=== PATIENT | female | born 1990 ===

== ENCOUNTER 2016-12-06 16:30 | Inpatient (IN) | payer MEDICAID, OTHER ==
--- NOTE | 2016-12-06 18:42 | C.PDOC ---
History Of Present Illness 26 yr old female presents to the ER requesting detox from heroin and suboxone. Patient reports last use of suboxone was yesterday and heroin use 2 days ago. Patient denies fever, nausea, vomiting, abdominal pain, headache, weakness or numbness. Time Seen by Provider: 12/06/16 18:18 Chief Complaint (Nursing): Substance Abuse History Per: Patient History/Exam Limitations: no limitations Onset/Duration Of Symptoms: Persistent Current Symptoms Are (Timing): Still Present Past Medical History Reviewed: Historical Data, Nursing Documentation, Vital Signs Vital Signs: Last Vital Signs Temp 98.8 F 12/06/16 20:36 Pulse 82 12/06/16 20:36 Resp 18 12/06/16 20:36 BP 107/67 12/06/16 20:36 Pulse Ox 99 12/06/16 20:36 - Medical History PMH: Hypothyroidism Family History: States: No Known Family Hx - Social History Hx Alcohol Use: Yes Hx Substance Use: Yes (suboxene, heroin) Review Of Systems Except As Marked, All Systems Reviewed And Found Negative. Constitutional: Negative for: Fever Gastrointestinal: Negative for: Nausea, Vomiting, Abdominal Pain Neurological: Negative for: Weakness, Numbness, Headache Physical Exam - Physical Exam Appears: Non-toxic, No Acute Distress Skin: Warm, Dry, No Rash Head: Atraumatic, Normacephalic Eye(s): bilateral: Normal Inspection, PERRL, EOMI Oral Mucosa: Moist Neck: Normal, Normal ROM, Supple Chest: Symmetrical, No Tenderness Cardiovascular: Rhythm Regular, No Murmur Respiratory: Normal Breath Sounds, No Rales, No Rhonchi, No Stridor, No Wheezing Back: Normal Inspection, No CVA Tenderness Extremity: Normal ROM, No Swelling Neurological/Psych: Oriented x3, Normal Speech, Normal Motor Gait: Steady ED Course And Treatment - Laboratory Results Result Diagrams: 12/06/16 19:06 12/06/16 19:06 O2 Sat by Pulse Oximetry: 99 Medical Decision Making Medical Decision Making: PLAN: * Alcohol Serum * Drug Screen * CBC * HCG Urine * Urinalysis Patient was evaluated by crisis and case was discussed with psychiatrcristian murrell. Patient was medically cleared for psych/detox admission. Disposition - Disposition Disposition: HOSPITALIZED Disposition Time: 19:58 Condition: STABLE - POA Present On Arrival: None - Clinical Impression Clinical Impression: Opioid dependence - PA / TAXI [employer]IVER SUPERVISOR / Resident Statement MD/DO has reviewed & agrees with the documentation as recorded. - Scribe Statement The provider has reviewed the documentation as recorded by the Scribe Shauna Shook All medical record entries made by the Robertibnanette were at my direction and personally dictated by me. I have reviewed the chart and agree that the record accurately reflects my personal performance of the history, physical exam, medical decision making, and the department course for this patient. I have also personally directed, reviewed, and agree with the discharge instructions and disposition.
[2016-12-06 18:56] LABS: RBC URINE 1 /hpf (0-3); URINE BACTERIA RARE (<OCC); URINE BILIRUBIN NEGATIVE (NEGATIVE); URINE BLOOD NEGATIVE (NEGATIVE); URINE COLOR Yellow (YELLOW); URINE GLUCOSE (UA) NORMAL (Normal); URINE KETONE NEGATIVE (NEGATIVE); URINE LEUKOCYTE ESTERASE NEG Leu/uL (Negative); URINE PROTEIN 1+ mg/dL (NEGATIVE); URINE UROBILINOGEN NORMAL mg/dL (0.2-1.0); WBC URINE 2 /hpf (0-5)
[2016-12-06 19:09] LABS: BASO # 0.1 K/uL (0.0-0.2); BASO % 0.6 % (0.0-2.0); EOS # 0.1 K/uL (0.0-0.7); EOS % 1.3 % (0.0-4.0); HEMATOCRIT 40.7 % (34.0-47.0); LYMPH # 2.3 K/uL (1.0-4.3); LYMPH % 23.6 % (20.0-40.0); MEAN CELL VOLUME 90.5 fL (81.0-99.0); MEAN CORPUSCULAR HEMOGLOBIN 29.3 pg (27.0-31.0); MEAN CORPUSCULAR HGB CONC 32.4 g/dL (33.0-37.0); MEAN PLATELET VOLUME 10.7 fL (7.2-11.7); MONO # 0.6 K/uL (0.0-0.8); MONO % 6.4 % (0.0-10.0); NRBC % 0.1 % (0.0-2.0); RED CELL DISTRIBUTION WIDTH 13.4 % (11.5-14.5); WHITE BLOOD COUNT 9.7 K/uL (4.8-10.8)
[2016-12-06 19:15] LABS: CHLORIDE 98 mmol/L (98-107)
[2016-12-06 19:16] LABS: POTASSIUM 4.4 mmol/L (3.6-5.2); SODIUM 139 mmol/L (132-148)
[2016-12-06 19:18] LABS: GFR AFRICAN-AMERICAN > 60
[2016-12-06 19:19] LABS: ALB/GLOB RATIO 1.2 (1.0-2.1); ALCOHOL SERUM < 10 mg/dl (0-10); ALKALINE PHOSPHATASE 83 U/L (38-126); ALT/SGPT 16 U/L (9-52); AST/SGOT 18 U/L (14-36); BILIRUBIN,TOTAL 0.4 mg/dL (0.2-1.3); BLOOD UREA NITROGEN 9 mg/dL (7-17); CARBON DIOXIDE 24 mmol/L (22-30); GLUCOSE,RANDOM 98 mg/dL (65-105); TOTAL PROTEIN 7.9 g/dL (6.3-8.3)
[2016-12-06] MEDS ORDERED: Buprenorphine Hydrochloride 2 mg SL ONE ×2 (21:17→22:30)
[2016-12-07] MEDS: Levothyroxine 100 MCG TAB PO SCH (06:44)
[2016-12-07] MEDS: Buprenorphine Hydrochloride 2 mg SL SCH (09:29)
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
[2016-12-08] MEDS: Levothyroxine 100 MCG TAB PO SCH (06:46)
[2016-12-08] MEDS: Buprenorphine Hydrochloride 2 mg SL SCH (09:04)
[2016-12-08 13:22] VITALS: RESP 18
--- NOTE | 2016-12-08 13:22 | PCM.PYCHPN ---
Psychiatric Progress Note - Psychiatric Progress Note Patient seen today, length of contact: 16 minutes Patient Chief Complaint: "getting better but bad anxiety" Problems Identified/Issues Discussed: Pt seen, chart reviewed, and case discussed Pt states shes feeling better, however does complains of some anxiety, feeling upset and crying. Denies chills, diaphoresis, abdominal pain, nausea, vomiting, suicidal ideation, homicidal ideation and hallucinations. Following discharge, pt plans to attend short term inpatient rehab followed by IOP and return back to work. Psychoeducation and support provided. Medication Change: Yes (detox changes daily, add Gabapentin and Lexapro) Medical Record Reviewed: Yes Mental Status Examination - Cognitive Function Orientation: Person, Place, Situation, Time Memory: Intact Attention: Poor Concentration: WNL Association: WNL Fund of Knowledge: WNL - Mood Mood: Anxious - Affect Affect: Flat - Speech Speech: Appropriate - Formal Thought Process Formal Thought Process: No Impairment - Suicidal Ideation Suicidal Ideation: No - Homicidal Ideation Homicidal Ideation: No Goal/Treatment Plan - Goal/Treatment Plan Need for Continued Stay: Remain at risks for inpatient hospitalization Progress Toward Problem(s) and Goals/Treatment Plan: opioids: -continue Subutex detox -as needed meds -attend groups and activities -GA, CBT -Refer to inpatient rehab -consider MAT Cocaine; - gabapentin - Mi for abstinence Depression and anxiety: - CBT and supportive tx - Attend groups - Lexapro started
[2016-12-09] MEDS: Levothyroxine 100 MCG TAB PO SCH (06:40)
[2016-12-09] MEDS: Buprenorphine Hydrochloride 2 mg SL SCH (09:06)
--- NOTE | 2016-12-09 14:59 | PCM.PYCHPN ---
Psychiatric Progress Note - Psychiatric Progress Note Patient seen today, length of contact: 16 minutes Patient Chief Complaint: "I have crazy anxiety" Problems Identified/Issues Discussed: Pt seen, chart reviewed, and case discussed Pt complains of continued anxiety, restlessness, body aches, and vomiting x3 yesterday, however was able to sleep through the night. Pt does not have a definite plan following discharge. States she will be moving to [place] on 12/28 with her significant other, however does not know where she will be staying until then. Pt denies suicidal ideation, homicidal ideation, and hallucinations Psychoeducation and support provided. Medication Change: Yes (detox changes daily) Medical Record Reviewed: Yes Mental Status Examination - Cognitive Function Orientation: Person, Place, Situation, Time Memory: Intact Attention: Poor Concentration: Poor Association: WNL Fund of Knowledge: WNL - Mood Mood: Depressed - Affect Affect: Flat - Speech Additional comments: Speech is slowed. - Formal Thought Process Formal Thought Process: No Impairment - Suicidal Ideation Suicidal Ideation: No - Homicidal Ideation Homicidal Ideation: No Goal/Treatment Plan - Goal/Treatment Plan Need for Continued Stay: Remain at risks for inpatient hospitalization, Severe functional impairment Progress Toward Problem(s) and Goals/Treatment Plan: opioids: -continue Subutex detox -as needed meds -attend groups and activities -AL, CBT -Refer to aftercare -consider MAT Cocaine: - gabapentin - Mi for abstinence Depression and anxiety: - CBT and supportive tx - Attend groups - Lexapro started
[2016-12-09] MEDS ORDERED: Magnesium Hydroxide Susp 30 ml UD PO ONE (21:23)
[2016-12-10] MEDS: Levothyroxine 100 MCG TAB PO SCH (05:31)
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
[2016-12-10] MEDS: Buprenorphine Hydrochloride 2 mg SL SCH (09:18)
[2016-12-10 09:20] VITALS: BP 96/58; PULSE 75; TEMP 97.6; O2SAT 97
== END 2016-12-10 12:00 | disposition home or self-care (01) | DRG 745 ==
LOC: C.ER 16:30 → C.7D 19:59
PROVIDERS: ADMIT Psychiatry & Neurology Psychiatry; ATTEND Psychiatry & Neurology Psychiatry
PROC: HZ2ZZZZ Detoxification Services for Substance Abuse Treatment (ICD-10-PCS; principal; 2016-12-06)
PROC: HZ42ZZZ Group Counseling for Substance Abuse Treatment, Cognitive-Behavioral (ICD-10-PCS; 2016-12-06)
PROC: HZ32ZZZ Individual Counseling for Substance Abuse Treatment, Cognitive-Behavioral (ICD-10-PCS; 2016-12-06)
PROC: HZ59ZZZ Individual Psychotherapy for Substance Abuse Treatment, Supportive (ICD-10-PCS; 2016-12-06)
DX: F11.23 Opioid dependence with withdrawal (principal); F32.9 Major depressive disorder, single episode, unspecified; F12.90 Cannabis use, unspecified, uncomplicated; F14.90 Cocaine use, unspecified, uncomplicated; F15.90 Other stimulant use, unspecified, uncomplicated; F41.9 Anxiety disorder, unspecified; E03.9 Hypothyroidism, unspecified